=== PATIENT | male | born 2000 | race Caucasian/White ===

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

== ENCOUNTER 2023-01-04 01:30 | Emergency (ER) | payer OTHER, SELFPAY ==
[2023-01-04] MEDS ORDERED: Mag-Al Plus 1200 MG/1200 MG/120 MG/30 ML UDCUP ONE (02:14)
[2023-01-04] MEDS ORDERED: Lidocaine Viscous Sol 2% 15 ml UD Cup ONE (02:14)
[2023-01-04] MEDS ORDERED: Ondansetron ODT 4 MG TAB ONE (02:16)
[2023-01-04] MEDS ORDERED: Dicyclomine 10 MG CAP ONE (02:16)
[2023-01-04 02:25] LABS: #Basophils 0.1 thou/uL (0.0-0.2); #Eosinphils 0.1 thou/uL (0.0-0.7); #Lymphocytes 2.6 thou/uL (1.20-3.40); #Monocytes 0.8 thou/uL (0.11-0.59); #Neutrophils 6.8 thou/uL (1.40-6.50); %Lymphocytes 24.6 % (28.0-48.0); %Monocytes 7.9 % (0.0-4.0); %Neutrophils 65.5 % (31.0-61.0); Hemoglobin 13.4 g/dL (14.0-18.0); Mean Corpuscular HGB CONC 33.3 g/dL (32.0-36.0); Mean Corpuscular Hemoglobin 30.1 pg (25.0-35.0); Mean Corpuscular Volume 90.2 fl (78.0-98.0); Mean Platelet Volume 8.1 fL (7.4-10.4); Platelet Count 260 10x3/uL (130-400); RBC Distribution Width 12.8 % (11.5-14.5); Red Blood Cell (RBC) Count 4.45 mill/uL (4.00-5.20); White Blood Cell (WBC) Count 10.4 10x3/uL (4.8-10.8)
[2023-01-04 02:45] LABS: ALT (SGPT) Less than 7 U/L (8-55); AST (SGOT) 12 U/L (5-34); Albumin 4.1 g/dL (3.5-5.0); Alkaline Phosphatase 83 U/L (50-130); Anion Gap 14 mmol/L (10-20); BUN (Urea Nitrogen) 10 mg/dL (8.9-20.6); Bilirubin, Total 0.3 mg/dL (0.2-1.2); Calc. Creatinine Clearance 0 mL/min (70-130); Calcium 9.1 mg/dL (7.8-10.44); Carbon Dioxide 27 mmol/L (22-29); Chloride 103 mmol/L (98-107); Estimated GFR 122; Globulin 2.7 g/dL (2.4-3.5); Glucose 94 mg/dL (70-105); Lipase 10 U/L (8-78); Potassium 3.8 mmol/L (3.5-5.1); Protein, Total 6.8 g/dL (6.0-8.3); Sodium 140 mmol/L (136-145)
== END 2023-01-04 03:01 | disposition home or self-care (01) ==
LOC: MADERS 01:30
DX: G89.29 Other chronic pain (principal); R10.13 Epigastric pain
CPT/HCPCS: 36415; 80053; 83690; 85025; 99284; Q0162

== ENCOUNTER 2023-01-25 05:20 | Emergency (ER) | payer SELFPAY ==
[2023-01-25] MEDS ORDERED: hydrOXYzine 25 MG TAB ONE (07:09)
== END 2023-01-25 07:15 | disposition home or self-care (01) ==
LOC: MADERS 05:20
DX: F41.0 Panic disorder [episodic paroxysmal anxiety] (principal); F41.9 Anxiety disorder, unspecified
CPT/HCPCS: 99283

== ENCOUNTER 2023-03-14 12:59 | Emergency (ER) | payer SELFPAY ==
[2023-03-14] MEDS ORDERED: Ibuprofen 800 MG TAB ONE (13:42)
== END 2023-03-14 14:06 | disposition home or self-care (01) ==
LOC: MADERS 12:59
DX: F41.9 Anxiety disorder, unspecified (principal)
CPT/HCPCS: 71045; 93005

== ENCOUNTER 2024-09-07 17:21 | Emergency (ER) | payer SELFPAY ==
[2024-09-07] MEDS ORDERED: Acetaminophen 500 MG TAB ONE (18:40)
[2024-09-07] MEDS ORDERED: Dexamethasone 10 MG/ML VIAL ONE (18:40)
[2024-09-07] MEDS ORDERED: Ondansetron ODT 4 MG TAB ONE (18:40)
[2024-09-07] MEDS ORDERED: Amoxicillin/Potassium Clav 875 MG TAB ONE (20:29)
== END 2024-09-07 20:37 | disposition home or self-care (01) ==
LOC: MADERS 17:21
DX: J01.90 Acute sinusitis, unspecified (principal); R07.81 Pleurodynia; Z87.891 Personal history of nicotine dependence; W19.XXXA Unspecified fall, initial encounter
CPT/HCPCS: 70450; 70486; 71046; 96372; J1100; Q0162

== ENCOUNTER 2025-04-14 07:56 | Emergency (ER) | payer OTHER ==
[2025-04-14] MEDS ORDERED: Ondansetron PF 4 MG/2 ML Vial ONE (08:31)
[2025-04-14 08:51] LABS: #Basophils 0.1 thou/uL (0.0-0.2); #Eosinophils 0.1 thou/uL (0.0-0.7); #Lymphocytes 1.9 thou/uL (1.20-3.40); #Monocytes 0.5 thou/uL (0.11-0.59); #Neutrophils 2.5 thou/uL (1.40-6.50); %Basophils 1.7 % (0.0-1.0); %Eosinophils 2.0 % (0.0-10.0); %Lymphocytes 37.3 % (21.0-51.0); %Monocytes 9.7 % (0.0-10.0); %Neutrophils 49.3 % (42.0-75.0); Hematocrit 44.9 % (42.0-52.0); Hemoglobin 15.2 g/dL (14.0-18.0); Mean Corpuscular Hemoglobin 29.6 pg (27.0-31.0); Mean Corpuscular Volume 87.7 fl (78.0-98.0); Platelet Count 284 10x3/uL (130-400); Red Blood Cell (RBC) Count 5.12 mill/uL (4.70-6.10); White Blood Cell (WBC) Count 5.1 10x3/uL (4.8-10.8)
[2025-04-14 09:04] LABS: ALT (SGPT) 13 U/L (Less than 45); AST (SGOT) 22 U/L (11-34); Albumin 4.6 g/dL (3.1-4.5); Alkaline Phosphatase 94 U/L (40-110); Anion Gap 16 mmol/L (10-20); BUN (Urea Nitrogen) 17 mg/dL (8.9-20.6); Bilirubin, Total 0.4 mg/dL (0.3-1.2); Calc. Creatinine Clearance 0 mL/min (70-130); Calcium 8.7 mg/dL (7.8-10.44); Carbon Dioxide 22 mmol/L (22-29); Chloride 107 mmol/L (98-107); Globulin 2.6 g/dL (2.4-3.5); Glucose 85 mg/dL (70-105); Potassium 4.0 mmol/L (3.5-5.1); Sodium 141 mmol/L (136-145); Troponin I 0.014 ng/mL (< 0.028)
== END 2025-04-14 10:05 | disposition home or self-care (01) ==
LOC: MADERS 07:56
DX: R11.0 Nausea (principal); R06.02 Shortness of breath; Z87.891 Personal history of nicotine dependence
CPT/HCPCS: 71045; 80053; 83690; 84484; 85025; 93005; 94760; 96374; J2405; J7030

== ENCOUNTER 2025-04-21 16:33 | Emergency (ER) | payer OTHER ==
[2025-04-21] MEDS ORDERED: Tetracaine 0.5% PF 4 ML BOT ONE (16:43)
[2025-04-21] MEDS ORDERED: Fluorescein Opthalmic Strip ONE (16:43)
[2025-04-21] MEDS ORDERED: Ketorolac Tromethamine 30 MG (1 mL) VIAL ONE (16:49)
== END 2025-04-21 17:30 | disposition home or self-care (01) ==
LOC: MADERS 16:33
DX: S05.02XA Injury of conjunctiva and corneal abrasion without foreign body, left eye, initial encounter (principal); S05.01XA Injury of conjunctiva and corneal abrasion without foreign body, right eye, initial encounter; H16.133 Photokeratitis, bilateral; J44.9 Chronic obstructive pulmonary disease, unspecified; Z87.891 Personal history of nicotine dependence; Z79.51 Long term (current) use of inhaled steroids; W44.8XXA Other foreign body entering into or through a natural orifice, initial encounter
CPT/HCPCS: 96372; 99283; J1885

== ENCOUNTER 2025-05-14 19:14 | Emergency (ER) | payer OTHER ==
[2025-05-14] MEDS ORDERED: Ketorolac Tromethamine 30 MG (1 mL) VIAL ONE (19:26)
[2025-05-14] MEDS ORDERED: Fluorescein Opthalmic Strip ONE (19:26)
[2025-05-14] MEDS ORDERED: Tetracaine 0.5% PF 4 ML BOT ONE (19:26)
[2025-05-14] MEDS ORDERED: HYDROcodone/Acetaminophen 5/325 mg Tablet ONE (19:45)
== END 2025-05-14 19:58 | disposition home or self-care (01) ==
LOC: MADERS 19:14
DX: H16.133 Photokeratitis, bilateral (principal); Z87.891 Personal history of nicotine dependence
CPT/HCPCS: 96372; 99283; J1885